=== PATIENT | male | born 1980 | race African-American/Black ===

== ENCOUNTER 2019-06-11 18:54 | Emergency (ER) | payer BC, OTHER ==
[~2019-06-11] VITALS: Ht 165.1 cm; Wt 127.0 kg
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
[2019-06-11] MEDS ORDERED: oxyCODONE/APAP 5/325 1 TAB TABLET PO ONE (21:30)
[2019-06-11] MEDS ORDERED: DIPHTH,PERTUSS(ACELL),TET TOX 0.5 ML DISP.SYRIN. VAX IM ONE (21:30)
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
[2019-06-11 22:21] LABS: BASO % 1 % (0-3); EOS # 0.3 x10^3/uL (0.0-0.7); EOS % 3 % (0-3); HEMATOCRIT 40.5 % (39.0-53.0); HEMOGLOBIN 13.1 g/dL (13.0-17.5); LYMPH # 1.9 x10^3/uL (1.0-4.8); LYMPH % 23 % (24-48); MEAN CORPUSCULAR HEMOGLOBIN 28 pg (25-35); MEAN CORPUSCULAR HGB CONC 32 g/dL (31-37); MEAN CORPUSCULAR VOLUME 87 fL (79-100); MONO # 0.5 x10^3/uL (0.0-1.1); MONO % 6 % (0-9); NEUT # 5.7 x10^3uL (1.8-7.7); NEUT % 67 % (31-73); PLATELET COUNT 306 x10^3/uL (140-400); RED BLOOD COUNT 4.64 x10^6/uL (4.30-5.70); RED CELL DISTRIBUTION WIDTH 14.2 % (11.5-14.5); WHITE BLOOD COUNT 8.4 x10^3/uL (4.0-11.0)
[2019-06-11 22:30] LABS: BACTERIA,URINE 0 /HPF (0-FEW); BILIRUBIN,URINE NEG (NEG); CLARITY,URINE CLEAR; COLOR,URINE YELLOW; GLUCOSE,URINE NEG (NEG); NITRITE,URINE NEG (NEG); RBC,URINE 0 /HPF (0-2); UROBILINOGEN,URINE 0.2 mg/dL (0.2 mg/dL); WBC,URINE RARE /HPF (0-4)
[2019-06-11 22:31] VITALS: BP 190/130
[2019-06-11 22:31] LABS: HYALINE CASTS, URINE OCC /HPF
[2019-06-11 22:31] LABS: ALBUMIN 4.1 g/dL (3.4-5.0); CALCIUM 9.4 mg/dL (8.5-10.1); CREATININE 1.5 mg/dL (0.7-1.3); DIRECT BILIRUBIN 0.1 mg/dL (0.0-0.2); POTASSIUM 3.4 mmol/L (3.5-5.1); TOTAL BILIRUBIN 0.7 mg/dL (0.2-1.0); TOTAL PROTEIN 8.4 g/dL (6.4-8.2)
[2019-06-11] MEDS ORDERED: cloNIDine HCL 0.1 MG TABLET PO ONE (22:45)
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
== END 2019-06-11 22:35 | disposition home or self-care (01) ==
LOC: ER 18:54
DX: S00.93XA Contusion of unspecified part of head, initial encounter (principal); S00.83XA Contusion of other part of head, initial encounter; I10 Essential (primary) hypertension; E87.6 Hypokalemia; R79.89 Other specified abnormal findings of blood chemistry; Y08.89XA Assault by other specified means, initial encounter; Y93.89 Activity, other specified; Y92.89 Other specified places as the place of occurrence of the external cause; Y99.0 Civilian activity done for income or pay
CPT/HCPCS: 36415; 70450; 70486; 71046; 72125; 80048; 80076; 81001; 85025; 85610; 85730; 90471; 90715; 99285-25

== ENCOUNTER 2020-06-17 22:23 | Emergency (ER) | payer OTHER ==
[~2020-06-17] VITALS: Ht 165.1 cm; Wt 151.0 kg
[2020-06-17 22:30] VITALS: BP 165/116
--- NOTE | 2020-06-17 23:12 | RAD ---
Bilateral knees 4 views each. HISTORY: Bilateral knee pain, fall Left knee 4 views were taken of the left knee. There is not evidence of an acute fracture or joint effusion or osseous abnormality. Right knee 4 views were taken of the right knee. There is not evidence of a fracture or joint effusion or acute osseous abnormality. IMPRESSION: 1. Negative bilateral knees. Electronically signed by: Jose Ortiz MD (06/17/2020 11:09 PM) [id number]
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
== END 2020-06-17 23:38 | disposition home or self-care (01) ==
LOC: ER 22:23
DX: S80.02XA Contusion of left knee, initial encounter (principal); S80.01XA Contusion of right knee, initial encounter; E78.00 Pure hypercholesterolemia, unspecified; I10 Essential (primary) hypertension; G43.909 Migraine, unspecified, not intractable, without status migrainosus; W01.0XXA Fall on same level from slipping, tripping and stumbling without subsequent striking against object, initial encounter; Y93.89 Activity, other specified; Y92.89 Other specified places as the place of occurrence of the external cause; Y99.8 Other external cause status
CPT/HCPCS: 73564; 99284